=== PATIENT | female | born 1950 | race Caucasian/White ===

== ENCOUNTER 2017-01-22 07:13 | Day surgery (SDC) | payer BC ==
[~2017-01-22 07:13] MED LIST: Buffered Lidocaine 1% SYRIN* 5 ML/SYR SYRINGE INTRADERM ONE
[2017-01-22] MEDS ORDERED: Midazolam* 1 MG/ML 2 ML VIAL (2 MG) ONE (09:24)
[2017-01-22] MEDS ORDERED: Propofol* 10 MG/ML 20 ML BTL IV PUSH ONE (09:50)
[2017-01-22 09:59] VITALS: BP 138/96
[2017-01-22] MEDS ORDERED: acetaZOLAMIDE TAB* 250 MG ONE (11:25)
[2017-01-22] MEDS ORDERED: Cyclopentolate 1% OPTH.SOL* 2 ML BTL ONE (11:25)
[2017-01-22] MEDS ORDERED: Lidocaine 1% MPF* 2 ML VIAL ONE (11:25)
[2017-01-22] MEDS ORDERED: Lidocaine 2% EPI 1:200000 MPF* 20 ML VIAL ONE (11:25)
[2017-01-22] MEDS ORDERED: Flurbiprofen 0.03% OPTH.SOL* 2.5 ML BTL ONE (11:25)
[2017-01-22] MEDS ORDERED: Neomycin/Polymy/Dex OPTH.SUSP* MAXITROL 0.1% 5 ML ONE (11:25)
[2017-01-22] MEDS ORDERED: Povidone Iodine 5% OPTH* 30 ML BTL ONE (11:26)
[2017-01-22] MEDS ORDERED: Proparacaine 0.5% OPHTH.SOL* 15 ML BTL ONE (11:26)
[2017-01-22] MEDS ORDERED: Phenylephrine 2.5% OPTH.SOL* 2 ML BTL ONE (11:26)
--- NOTE | 2017-01-23 01:48 | OP ---
OPERATIVE NOTE: DATE OF OPERATION: 01/22/17 - [facility] DATE OF : 50 SURGEON: Nnamdi Motley M.D. PREOPERATIVE DIAGNOSIS: Cataract, right eye. POSTOPERATIVE DIAGNOSIS: Cataract, right eye. OPERATIVE PROCEDURE: Phacoemulsification, right eye with IOL. PROCEDURE: The patient was brought to the operating room after being given 1/2 % Alcaine with epinephrine drops in the preoperative area. The eye was prepped and draped in the usual sterile fashion. Sterile drape and eyelid speculum were placed. Again, topical 1/2% Alcaine with epinephrine was given. A paracentesis incision was made at the 9 o'clock position with the No.75 blade. Clear cornea incision 2.2 x 2.2-mm was created at the 12 o'clock position starting at the anterior limbus using the 2.2-mm keratome. The anterior chamber was irrigated with 0.4 mL of 1% non-preservative intracameral lidocaine and filled with DisCoVisc. A capsulorrhexis was completed using the cystotome and the Utrata forceps. Hydrodissection was performed with balanced salt solution. The lens nucleus was removed with the Phacoemulsification handpiece without incident. Cortex was removed with the irrigation-aspiration handpiece. The capsular bag was re-inflated using DisCoVisc and an [id number] implant was inserted with the shooter. The irrigation-aspiration handpiece was used to remove all residual DisCoVisc. The eye was refilled with balanced salt solution and the wound checked and found to be watertight. Topical Maxitrol drops were given. [id number]/[facility] #: [id number] MTDD
== END 2017-01-22 10:05 | disposition home or self-care (01) ==
LOC: OREAST 07:13
PROVIDERS: ATTEND Specialist
DX: H25.811 Combined forms of age-related cataract, right eye (principal); H43.813 Vitreous degeneration, bilateral; F17.210 Nicotine dependence, cigarettes, uncomplicated; J44.9 Chronic obstructive pulmonary disease, unspecified; K21.9 Gastro-esophageal reflux disease without esophagitis; N39.0 Urinary tract infection, site not specified; Z85.3 Personal history of malignant neoplasm of breast; I10 Essential (primary) hypertension
CPT/HCPCS: A9270-GY; J2250; J2704; V2632

== ENCOUNTER 2017-01-29 07:05 | Day surgery (SDC) | payer BC ==
[~2017-01-29 07:05] MED LIST changes: +Acetaminophen TAB* 325 MG PO PRN
[2017-01-29] MEDS ORDERED: Midazolam* 1 MG/ML 5 ML VIAL (5 MG) ONE (09:02)
[2017-01-29 09:37] VITALS: BP 151/71
[2017-01-29] MEDS ORDERED: acetaZOLAMIDE TAB* 250 MG ONE (12:08)
[2017-01-29] MEDS ORDERED: Povidone Iodine 5% OPTH* 30 ML BTL ONE (12:08)
[2017-01-29] MEDS ORDERED: Proparacaine 0.5% OPHTH.SOL* 15 ML BTL ONE (12:08)
[2017-01-29] MEDS ORDERED: Lidocaine 2% EPI 1:200000 MPF* 20 ML VIAL ONE (12:08)
[2017-01-29] MEDS ORDERED: Lidocaine 1% MPF* 2 ML VIAL ONE (12:08)
[2017-01-29] MEDS ORDERED: Neomycin/Polymy/Dex OPTH.SUSP* MAXITROL 0.1% 5 ML ONE (12:08)
[2017-01-29] MEDS ORDERED: Cyclopentolate 1% OPTH.SOL* 2 ML BTL ONE (12:08)
[2017-01-29] MEDS ORDERED: Flurbiprofen 0.03% OPTH.SOL* 2.5 ML BTL ONE (12:08)
--- NOTE | 2017-01-29 13:02 | OP ---
OPERATIVE NOTE: DATE OF OPERATION: 01/29/17 DATE OF : 50. SURGEON: Nnamdi Motley M.D. PREOPERATIVE DIAGNOSIS: Cataract, left eye. POSTOPERATIVE DIAGNOSIS: Cataract, left eye. OPERATIVE PROCEDURE: Phacoemulsification, left eye with IOL. PROCEDURE: The patient was brought to the operating room after being given 1/2 % Alcaine with epinephrine drops in the preoperative area. The eye was prepped and draped in the usual sterile fashion. Sterile drape and eyelid speculum were placed. Again, topical 1/2% Alcaine with epinephrine was given. A paracentesis incision was made at the 3 o'clock position with the No.75 blade. Clear cornea incision 2.2 x 2.2-mm was created at the 6 o'clock position starting at the anterior limbus using the 2.2-mm keratome. The anterior chamber was irrigated with 0.4 mL of 1% non-preservative intracameral lidocaine and filled with DisCoVisc. A capsulorrhexis was completed using the cystotome and the Utrata forceps. Hydrodissection was performed with balanced salt solution. The lens nucleus was removed with the Phacoemulsification handpiece without incident. Cortex was removed with the irrigation-aspiration handpiece. The capsular bag was re-inflated using DisCoVisc and an SN60WF 22.5 implant was inserted with the shooter. The irrigation-aspiration handpiece was used to remove all residual DisCoVisc. The eye was refilled with balanced salt solution and the wound checked and found to be watertight. Topical Maxitrol drops were given. [id number]/[facility] #: [id number] MTDD
== END 2017-01-29 09:45 | disposition home or self-care (01) ==
LOC: OREAST 07:05
PROVIDERS: ATTEND Specialist
DX: H25.812 Combined forms of age-related cataract, left eye (principal); J44.9 Chronic obstructive pulmonary disease, unspecified; K21.9 Gastro-esophageal reflux disease without esophagitis; F17.200 Nicotine dependence, unspecified, uncomplicated
CPT/HCPCS: A9270-GY; J2250; V2632

== ENCOUNTER 2017-03-27 06:28 | Day surgery (SDC) | payer BC ==
[~2017-03-27 06:28] MED LIST changes: -Acetaminophen TAB* 325 MG PO PRN; +Buffered Lidocaine 0.9% SYRIN* 5 ML/SYR SYRINGE INTRADERM ONE; -Buffered Lidocaine 1% SYRIN* 5 ML/SYR SYRINGE INTRADERM ONE
[2017-03-27] MEDS ORDERED: ceFAZolin 2 GM PREMIX(*) 2 GM/50 ML BAG IVPB ONE (07:04)
[2017-03-27] MEDS ORDERED: Bacitracin OINTMENT* 1 TUBE ONE (07:26)
[2017-03-27] MEDS ORDERED: Dexamethasone IV* 4 MG/ML 1 ML (4 MG) ONE (07:26)
[2017-03-27] MEDS ORDERED: Lidocaine 1% INJ* 10 MG/ML 30 ML SDV ONE (07:26)
[2017-03-27] MEDS ORDERED: Bupivacaine 0.5%* 50 ML VIAL ONE (07:27)
[2017-03-27] MEDS ORDERED: Bupivacaine 0.5% SDV PF* 30 ML VIAL ONE (07:28)
[2017-03-27] MEDS ORDERED: Midazolam* 1 MG/ML 2 ML VIAL (2 MG) ONE (07:34)
[2017-03-27] MEDS ORDERED: fentaNYL* 50 MCG/ML 2 ML VIAL (100 MCG VIAL) ONE (07:34)
[2017-03-27] MEDS ORDERED: Propofol* 10 MG/ML 20 ML BTL IV PUSH ONE ×2 (07:34→08:59)
[2017-03-27] MEDS ORDERED: fentaNYL* 50 MCG/ML 2 ML VIAL (100 MCG VIAL) IV PRN (08:37)
[2017-03-27] MEDS ORDERED: Ondansetron INJ* 2 MG/ML VIAL IV PRN (08:37)
[2017-03-27 09:31] VITALS: BP 142/73
--- NOTE | 2017-03-27 17:04 | OP ---
DATE OF OPERATION: 03/27/17 - [facility] DATE OF : 50 SURGEON: Wilian Carbajal DPM EXHIBITION CARVER: None. ANESTHESIOLOGIST: Lane Wooten MD ANESTHESIA: MAC with local. PRE-OP DIAGNOSES: 1. Painful bunion with hallux limitus, right foot. 2. Painful second right hammertoe. POST-OP DIAGNOSES: 1. Painful bunion with hallux limitus, right foot. 2. Painful second right hammertoe. OPERATIVE PROCEDURE: 1. Bunionectomy with first metatarsal osteotomy and phalangeal osteotomy, right foot. 2. Correction of second right toe hammertoe with PIPJ arthroplasty, MTPJ arthrotomy with extensor tendon lengthening and K-wire fixation, second digit right foot. INDICATIONS: The patient with chronic and progressive right forefoot pain and deformity with bunion deformity, contracted second right hammertoe creating painful lesion in between the adjacent toes, pain, and stiffness from the right great toe joint and she has pain when walking, wearing shoes, and opts for surgery at this time to attempt to decrease pain and improve her function and improve her ability to wear shoes and walk. PATHOLOGY: Degenerative bone. HEMOSTASIS: Pneumatic ankle tourniquet. ESTIMATED BLOOD LOSS: Less than 10 cc. MATERIALS: Two of the 3.0-mm cannulated [place], cannulated screws and one smooth 0.045-inch K-wire. DESCRIPTION OF PROCEDURE: The patient was brought to the operating room, placed on the operating room table in supine position. Anesthesia department administered IV sedation and peripheral nerve block was performed about the right foot with a 1:1 mixture of 1% lidocaine plain and 0.5% Marcaine plain. Attention was directed to dorsomedial aspect of the right foot. An Esmarch bandage was utilized to exsanguinate the right foot and pneumatic ankle tourniquet was inflated to 250 mmHg above well-padded right ankle. Attention was directed to the dorsomedial aspect of the right great toe joint where a curvilinear incision was made. The incision was deepened through subcutaneous tissue, with care been taken to retract neurovascular structures and cauterize superficial bleeders as needed. Next, an inverted L capsular incision was made of exposure of the joint. There was noted to be hypertrophic bone dorsomedially as well as dorsolaterally. Next, a traditional lateral release was performed in the first metatarsal space releasing the conjoint tendon of the adductor hallucis and posterolateral capsule and lateral fibular sesamoid ligament. Extensor hallucis brevis tendon was also identified and transected. A McGlamry elevator was needed to free plantar lateral adhesions of the sesamoid apparatus. This allowed for relaxation of all lateral contractures. Next, using sagittal saw, the hypertrophic bone was resected from first metatarsal head. Next, a chevron-type first metatarsal head osteotomy was performed with the apex just dorsal and proximal to the geometric center of the first metatarsal head. First, the plantar ligament wing was cut angled slightly plantar proximally to offer some plantar flexion of the capital fragment from medial to lateral. Next, the dorsal wing was cut. This being done, the capital fragment was transposed lateral to the corrected position and temporary fixation was achieved with smooth wire from the screw set. Position was checked with intraoperative C-arm. Next, using standard technique, a 3.0-mm cannulated screw was placed across the osteotomy site with care being taken to ensure that tip of the screw do not enter the joint. The screw was set at 2 fingers' tight. Temporary fixation was removed and the osteotomy was found to be solid with no detectable motion or gapping. Again, the positioning and fixation was assessed with intraoperative C-arm. Redundant medial shaft of bone was resected and power bur was used to smooth rough edges. Surgical site was flushed with copious amounts of normal sterile saline. There was still some lateral deviation within the great toe and so the dissection was carried further dorsomedially to allow for reflection of the periosteum as well and exposure of the proximal phalanx. Next , the angular phalangeal osteotomy was performed, distal medial to more proximal lateral with the proximal lateral hinge maintained. Small wedge of bone was resected and the osteotomy was reduced. Temporary fixation was achieved with the wire from screw set. Position was assessed with the C-arm and using standard technique, a 3.0-mm cannulated [place] screw was placed across the osteotomy site. Temporary fixation was removed and the osteotomy was inspected, found to be solid, no detectable motion or gapping and the screw was 2 fingers' tight. Surgical site was flushed with copious amounts of normal sterile saline. Medial capsulorrhaphy was performed resecting redundant medial capsule and holding the hallux in the rectus position. The periosteal and capsular tissues were reapproximated and secured with 2-0 Polysorb. Subcutaneous tissues were reapproximated with 4-0 Polysorb and skin was reapproximated with 5-0 nylon. Attention was directed to the dorsal aspect of the second digital where a curvilinear incision was made. The extensor peck was released and the transverse tenotomy/capsulotomy was performed to proximal phalangeal joint and the proximal phalangeal head was resected. Power bur was used to smooth rough edges. Next, Z extensor tendon lengthening procedure was performed and transverse capsulotomy was performed to metatarsophalangeal joint. There was still noted be contractures and McGlamry elevator was needed to gently free plantar adhesions. This allowed for relaxation of the contractures. The surgical site was flushed with copious amounts of normal sterile saline. A K- wire was needed to maintain position, so a smooth 0.045-inch K-wire was driven to the base of the proximal phalanx through tip of the digit retrograde through the proximal phalanx. Care had been taken to ensure to not penetrate the metatarsophalangeal joint. The wire had been cut and capped after the position was assessed with C-arm. The capsular tissues and extensor tendon were secured with 4-0 Polysorb. Subcutaneous tissues were secured with 4-0 Polysorb and skin was reapproximated and secured with 5-0 nylon. 12 mg of dexamethasone phosphate was infiltrated about the surgical site. The incisions were dressed with Xeroform gauze and a light compressive dressing was applied with 4x4 gauze , Maura, and light Coban wrap. Pneumatic ankle tourniquet was deflated about the right ankle and prompt hyperemic response noted in all 5 digits of patient' s right foot. Having appeared to have tolerated the procedure and the anesthesia well, the patient was transported via cart from the operating room to Recovery in satisfactory condition with cap refill less than 3 seconds to all digits of the right foot. [id number]/[facility] #: [id number] [facility]
== END 2017-03-27 09:54 | disposition home or self-care (01) ==
LOC: OREAST 06:28
PROVIDERS: ATTEND Podiatrist Foot Surgery
DX: M21.611 Bunion of right foot (principal); M20.5X1 Other deformities of toe(s) (acquired), right foot; M20.41 Other hammer toe(s) (acquired), right foot; I10 Essential (primary) hypertension; F17.210 Nicotine dependence, cigarettes, uncomplicated; Z85.3 Personal history of malignant neoplasm of breast; E78.5 Hyperlipidemia, unspecified
CPT/HCPCS: 76000; A9270-GY; C1713; C1776; J0690; J1100; J2001; J2250; J2704; J3010

== ENCOUNTER 2018-04-05 06:52 | Emergency (ER) | payer MEDICARE ==
--- NOTE | 2018-04-05 07:46 | ED ---
Upper Extremity Pain - HPI Summary HPI Summary: This is geetha Lowe documenting for attending Azam Turner MD. This patient is a 68 year old F presenting to [facility] accompanied by her with a chief complaint of left shoulder pain that began this morning when she awoke. She states she has chronic shoulder pain especially with movement and believes the pain may be due to sleeping on it last night. The patient rates the pain 10/10 in severity and states it is located in her trapezius as well as her shoulder. Patient denies numbness, weakness, and injury. NDKA - History of Current Complaint Chief Complaint: EDShoulderClavicleInj Stated Complaint: LT SHOULDER PAIN Time Seen by Provider: 04/05/18 07:38 Hx Obtained From: Patient Mechanism Of Injury: Other - none Onset/Duration: Started Hours Ago, Still Present Timing: Constant Severity Initially: Severe Severity Currently: Severe Pain Location: Shoulder - left, Other: - left neck Aggravating Factor(s): Movement Associated Signs & Symptoms: Positive: Negative - numbness, weakness, neck pain , and injury. - Allergies/Home Medications Allergies/Adverse Reactions: Allergies Allergy/AdvReac Type Severity Reaction Status Date / Time Seasonal Allergy Congestion Uncoded 04/22/17 10:26 PMH/Surg Hx/FS Hx/Imm Hx Endocrine/Hematology History: Denies: Hx Diabetes, Hx Thyroid Disease Cardiovascular History: Reports: Hx Hypertension Denies: Hx Pacemaker/ICD, Hx Syncope - dizziness, no fainting, Other Cardiovascular Problems/Disorders Respiratory History: Reports: Hx Chronic Obstructive Pulmonary Disease (COPD), Hx Seasonal Allergies Denies: Hx Asthma, Hx Pleural Effusion, Hx Pneumonia, Hx Pulmonary Edema, Hx Sleep Apnea, Other Respiratory Problems/Disorders GI History: Denies: Other GI Disorders History: Reports: Other Problems/Disorders - NO RECENT UTI'S Musculoskeletal History: Reports: Hx Arthritis - HIPS,KNEES, HANDS Denies: Hx Osteoporosis, Other Musculoskeletal History Sensory History: Reports: Hx Cataracts - ONE EYE, Hx Contacts or Glasses - GLASSES, Hx Vision Problem Denies: Hx Glaucoma, Hx Hearing Aid, Hx Hearing Problem Opthamlomology History: Reports: Hx Cataracts - ONE EYE, Hx Contacts or Glasses - GLASSES, Hx Vision Problem Denies: Hx Glaucoma Neurological History: Reports: Hx Headaches, Hx Migraine - HAVE MEDS, NO NEED SINCE MCC Denies: Hx Seizures, Other Neuro Impairments/Disorders Psychiatric History: Reports: Hx Anxiety - ON MEDS, Hx Depression - ON MEDS, Hx Panic Disorder - Cancer History Cancer Type, Location and Year: BREAST Hx Chemotherapy: No Hx Radiation Therapy: Yes - BOTH TIMES, RADIATION ONLY - Surgical History Surgery Procedure, Year, and Place: RIGHT BREAST LUMPECTOMY, 2005, [facility], HYSTERECTOMY, 2012, [facility] [place],LEFT KNEE ARTHROSCOPY 2011, [facility] [place], LEFT BREAST LUMPECTOMY 2013 Hx Anesthesia Reactions: No Infectious Disease History: No Infectious Disease History: Denies: Traveled Outside the [place] in Last 30 Days - Family History Known Family History: Positive: Hypertension Negative: Cardiac Disease, Diabetes - Social History Alcohol Use: Occasionally Alcohol Amount: 2-3 PER MONTH Substance Use Type: Reports: None Hx Tobacco Use: Yes Smoking Status (MU): Light Every Day Tobacco Smoker Type: Cigarettes Amount Used/How Often: PACK A DAY Length of Time of Smoking/Using Tobacco: 40 YEARS ON AND OFF Have You Smoked in the Last Year: Yes Review of Systems Constitutional: Negative - injury Positive: Other - left shoulder pain Negative: Weakness, Numbness All Other Systems Reviewed And Are Negative: Yes Physical Exam - Summary Physical Exam Summary: Appearance: Well appearing, no pain distress Skin: warm, dry, reflects adequate perfusion Head/face: normal Eyes: EOMI, BAILEE ENT: normal Neck: supple, non-tender Respiratory: CTA, breath sounds present Cardiovascular: RRR, pulses symmetrical Abdomen: non-tender, soft Bowel Sounds: present Musculoskeletal: strength/ROM intact, no crepitus, no limited ROM in left shoulder. Her left superior trapezius muscle is TTP and in spasm. Neuro: normal, sensory motor intact, A&Ox3 Triage Information Reviewed: Yes Vital Signs On Initial Exam: Initial Vitals Temp Pulse Resp BP Pulse Ox 97.8 F 79 18 160/86 97 04/05/18 06:55 04/05/18 06:55 04/05/18 06:55 04/05/18 06:55 04/05/18 06:55 Vital Signs Reviewed: Yes Procedures - Procedure Summary Procedure Summary: Trigger point injection: Reason: Left trapezius strain, tenderness Description: The patient was verbally consented. Her left superior trapezius area was cleaned and prepped with alcohol. She was injected with a total of 10 cc of 0.5% bupivacaine which was massage through the musculature. Her pain was almost immediately relieved. She had no complications and tolerated this well. Diagnostics - Vital Signs Vital Signs Temp Pulse Resp BP Pulse Ox 04/05/18 06:55 97.8 F 79 18 160/86 97 - Laboratory Lab Statement: Any lab studies that have been ordered have been reviewed, and results considered in the medical decision making process. Re-Evaluation - Re-Evaluation First Eval Re-Evaluation Time: 07:48 Change: Improved Comment: Patients pain resolved with injection. Course/Dx - Course Course Of Treatment: Pain is isolated to the superior trapezius muscle. A trigger point injection was performed which relieved all symptoms. She'll be given as needed cyclobenzaprine for ongoing symptoms. - Diagnoses Provider Diagnoses: Trapezius muscle spasm Discharge - Sign-Out/Discharge Documenting (check all that apply): Patient Departure - Discharge Plan Condition: Improved Disposition: HOME Prescriptions: Cyclobenzaprine (NF) [Cyclobenzaprine 5 MG (NF)] 5 mg PO TID PRN #10 tab PRN Reason: muscle pain Patient Education Materials: Muscle Strain (ED) Referrals: Natasha Laboy MD [Primary Care Provider] - Additional Instructions: Ice, massage to the area. Ibuprofen as needed. Muscle relaxant as needed. Return if worse, new symptoms or other concerns. - Billing Disposition and Condition Condition: IMPROVED Disposition: Home
[2018-04-05 08:12] VITALS: BP 148/80
== END 2018-04-05 08:10 | disposition home or self-care (01) ==
LOC: ED 06:52
DX: M62.838 Other muscle spasm (principal); F17.210 Nicotine dependence, cigarettes, uncomplicated
CPT/HCPCS: 99282

== ENCOUNTER 2021-12-15 05:29 | Inpatient (IN) ==
[2021-12-15 06:09] LABS: ABS Eosinophils 0.1 10^3/ul (0-0.6); ABS Lymphocytes 0.9 10^3/ul (1.0-4.8); ABS Monocytes 0.8 10^3/ul (0-0.8); Eosinophil % 0.5 %; Hematocrit 35 % (35-47); Hemoglobin 12.5 g/dL (12.0-16.0); Lymphocyte % 8.1 %; Mean Corpuscular HGB Conc 36 g/dL (31-36); Mean Corpuscular Hemoglobin 31 pg (27-31); Mean Corpuscular Volume 86 fL (80-97); Platelet Count 263 10^3/uL (150-450); Red Blood Count 4.01 10^6 /uL (3.70-4.87); Red Cell Distribution Width 14 % (10-15); White Blood Count 10.7 10^3/uL (3.5-10.8)
[2021-12-15 06:45] LABS: Albumin 4.4 g/dL (3.2-5.2); Albumin/Globulin Ratio 1.9 (1-3); Calcium 9.5 mg/dL (8.6-10.3); Globulin 2.3 g/dL (2-4); Magnesium 1.7 mg/dL (1.9-2.7); Potassium 3.4 mmol/L (3.5-5.0); Total Bilirubin 0.4 mg/dL (0.2-1.0); Total Protein 6.7 g/dL (6.4-8.9); eGFR CKD-EPI 95.5 (>60)
[2021-12-15 06:59] LABS: TSH Ultra Thyroid Stim Horm 1.58 mcIU/mL (0.34-5.60)
[2021-12-15] MEDS ORDERED: Morphine 2 MG/ML SYRINGE IV PRN (07:15)
[2021-12-15] MEDS: Morphine 4 MG/ML VIAL (1 ml) IV ONE (07:33)
[2021-12-15 08:24] LABS: High Sensitivity Troponin 1 Hr 4 pg/mL (<15)
[2021-12-15] MEDS ORDERED: Senna TAB 8.6 mg TAB PO PRN (08:31)
[2021-12-15] MEDS ORDERED: Potassium Chlor 20 meq TAB.ER PO ONE (08:53)
[2021-12-15 09:22] LABS: Osmolality Serum 263 mOsm/kg (275-295)
[2021-12-15] MEDS ORDERED: Magnesium Sulfate 2 gm BAG 2 GM/50 ML BAG IVPB ONE (09:46)
[2021-12-15] MEDS: Aspirin EC 81 mg TAB.EC (enteric coated) PO SCH (10:36)
[2021-12-15] MEDS: Vitamin THERAPEUTIC TAB PO SCH (10:37)
[2021-12-15] MEDS: Cholecalciferol (VIT D3) 1,000 unit TAB PO SCH (12:23)
[2021-12-15] MEDS: Nicotine PATCH 21 MG/24 HR PATCH TRANSDERM SCH (12:25)
[2021-12-15] MEDS: NS 0.9% 1000 ml BAG 1,000 ML IV SCH (12:26)
[2021-12-15] MEDS: Heparin 5000 UNITS/ML 1 mL VIAL SUBCUT SCH (22:40)
[2021-12-16 00:42] LABS: Urine Osmo 182 mOsm/kg (150-1150)
[2021-12-16] MEDS: NS 0.9% 1000 ml BAG 1,000 ML IV SCH ×2 (03:23→19:26)
[2021-12-16 05:16] LABS: ABS Eosinophils 0.1 10^3/ul (0-0.6); ABS Lymphocytes 0.9 10^3/ul (1.0-4.8); ABS Monocytes 0.8 10^3/ul (0-0.8); Eosinophil % 0.7 %; Hematocrit 35 % (35-47); Hemoglobin 12.4 g/dL (12.0-16.0); Mean Corpuscular HGB Conc 36 g/dL (31-36); Mean Corpuscular Hemoglobin 31 pg (27-31); Mean Corpuscular Volume 88 fL (80-97); Mean Platelet Volume 7.4 fL (7.4-10.4); Platelet Count 250 10^3/uL (150-450); Red Blood Count 3.94 10^6 /uL (3.70-4.87); Red Cell Distribution Width 14 % (10-15); White Blood Count 9.8 10^3/uL (3.5-10.8)
[2021-12-16 05:34] LABS: Calcium 8.8 mg/dL (8.6-10.3); Potassium 4.4 mmol/L (3.5-5.0); eGFR CKD-EPI 98.8 (>60)
[2021-12-16] MEDS: Heparin 5000 UNITS/ML 1 mL VIAL SUBCUT SCH ×3 (06:18→22:33)
[2021-12-16] MEDS: Nicotine PATCH 21 MG/24 HR PATCH TRANSDERM SCH (08:18)
[2021-12-16] MEDS: Aspirin EC 81 mg TAB.EC (enteric coated) PO SCH (08:18)
[2021-12-16] MEDS: Cholecalciferol (VIT D3) 1,000 unit TAB PO SCH (08:18)
[2021-12-16] MEDS: Vitamin THERAPEUTIC TAB PO SCH (08:20)
[2021-12-17 08:27] LABS: INR 1.15 (0.86-1.15)
[2021-12-17 09:25] LABS: Calcium 8.6 mg/dL (8.6-10.3); Potassium 4.2 mmol/L (3.5-5.0); eGFR CKD-EPI 101.2 (>60)
[2021-12-17] MEDS: Vitamin THERAPEUTIC TAB PO SCH (10:37)
[2021-12-17] MEDS: Cholecalciferol (VIT D3) 1,000 unit TAB PO SCH (10:38)
[2021-12-17] MEDS: Nicotine PATCH 21 MG/24 HR PATCH TRANSDERM SCH (10:38)
[2021-12-17] MEDS: Aspirin EC 81 mg TAB.EC (enteric coated) PO SCH (10:41)
[2021-12-17] MEDS ORDERED: Regadenoson 0.4 MG/5 ML SYRINGE ONE (12:46)
[2021-12-17] MEDS ORDERED: Aminophylline 25 MG/ML VIAL ONE (12:46)
[2021-12-17] MEDS ORDERED: Bupivacaine 0.25% SDV PF 10 ML VIAL INJ ONE (12:53)
[2021-12-17] MEDS ORDERED: Vancomycin 1,000 MG VIAL ONE (15:47)
[2021-12-17] MEDS ORDERED: ceFAZolin 2 GM in NS PREMIX 2 GM/100 ML BAG IVPB ONE (15:48)
[2021-12-17] MEDS ORDERED: Morphine 4 MG/ML VIAL (1 ml) ONE (15:54)
[2021-12-17] MEDS: Morphine 4 MG/ML VIAL (1 ml) IV ONE (15:55)
[2021-12-17] MEDS ORDERED: Propofol 10 MG/ML 20 ML BTL ONE (16:03)
[2021-12-17] MEDS ORDERED: Dexamethasone IV 4 MG/ML VIAL 1 ml VIAL ONE (16:03)
[2021-12-17] MEDS ORDERED: Rocuronium 50 mg VIAL 10 mg/ml 5 ml VIAL (50 mg) ONE ×2 (16:03→17:35)
[2021-12-17] MEDS ORDERED: Ondansetron 4 mg VIAL 2 MG/ML 2 ml VIAL ONE (16:03)
[2021-12-17] MEDS ORDERED: fentaNYL 100 mcg/2 ml 50 MCG/ML VIAL ONE ×2 (16:03→18:36)
[2021-12-17] MEDS ORDERED: Lidocaine 2% PF 5 ML VIAL ONE (16:03)
[2021-12-17] MEDS ORDERED: Midazolam 2 mg/2 ml VIAL 1 mg/ml 2 ml VIAL (2 mg) ONE (16:03)
[2021-12-17] MEDS ORDERED: Phenylephrine 40 mcg/mL 10mL (400mcg) SYRINGE ONE (16:40)
[2021-12-17] MEDS ORDERED: Morphine 10 MG/ML VIAL (1 ml) ONE (17:07)
[2021-12-17] MEDS ORDERED: Phenylephrine IV 10 MG/ML 1 ml VIAL ONE (17:19)
[2021-12-17] MEDS ORDERED: Acetaminophen IV 1 GM/100ML 100 ML IV ONE (18:23)
[2021-12-17] MEDS ORDERED: DiMENhydriNATE IV 50 mg/ml 1 ml VIAL IV PUSH PRN (19:05)
[2021-12-17] MEDS ORDERED: fentaNYL 100 mcg/2 ml 50 MCG/ML VIAL IV PRN (19:05)
[2021-12-17] MEDS ORDERED: Naloxone 0.4 mg VIAL 0.4 mg/ml 1 ml VIAL IV PRN (19:05)
[2021-12-18] MEDS: ceFAZolin VIAL 1 GM in NS 0.9% 50 ML 50 ML IVPB SCH ×3 (01:09→16:43)
[2021-12-18] MEDS: NS 0.9% 1000 ml BAG 1,000 ML IV SCH ×2 (01:18→19:12)
[2021-12-18] MEDS: Nicotine PATCH 21 MG/24 HR PATCH TRANSDERM SCH (08:05)
[2021-12-18] MEDS: Magnesium Hydroxide LIQ 30 ML UDC PO PRN ×2 (08:05→22:05)
[2021-12-18] MEDS: Cholecalciferol (VIT D3) 1,000 unit TAB PO SCH (08:07)
[2021-12-18] MEDS: Vitamin THERAPEUTIC TAB PO SCH (08:07)
[2021-12-18] MEDS: Polyethylene Glycol 3350 17 GM PACKET PO PRN (08:08)
[2021-12-18 15:43] LABS: Hematocrit 27 % (35-47); Hemoglobin 9.2 g/dL (12.0-16.0)
[2021-12-19 07:31] LABS: Potassium 3.8 mmol/L (3.5-5.0); eGFR CKD-EPI 106.4 (>60)
[2021-12-19] MEDS: NS 0.9% 1000 ml BAG 1,000 ML IV SCH (08:35)
[2021-12-19] MEDS: Cholecalciferol (VIT D3) 1,000 unit TAB PO SCH (08:43)
[2021-12-19] MEDS: Vitamin THERAPEUTIC TAB PO SCH (08:44)
[2021-12-19] MEDS: Nicotine PATCH 21 MG/24 HR PATCH TRANSDERM SCH (08:45)
[2021-12-19 12:29] LABS: Urine Appearance Clear; Urine Bilirubin Negative (Negative); Urine Blood 2+ (Negative); Urine Color Yellow; Urine Glucose Negative (Negative); Urine Ketones 1+ (Negative); Urine Nitrite Negative (Negative); Urine Protein Negative (Negative); Urine Specific Gravity 1.009 (1.002-1.030); Urine Urobilinogen Negative (Negative)
[2021-12-19 13:00] LABS: Urine Bacteria 1+ (Absent); Urine Red Blood Cell Trace(0-2/hpf) (Absent); Urine White Blood Cell Trace(0-5/hpf) (Absent)
[2021-12-19 14:32] LABS: Hematocrit 25 % (35-47)
[2021-12-19] MEDS ORDERED: Iohexol 350 (CONTRAST) 500 ML MDV IV ONE (16:23)
[2021-12-19 20:10] LABS: High Sensitivity Troponin 1 Hr 10 pg/mL (<15)
[2021-12-20 06:25] LABS: ABS Eosinophils 0.1 10^3/ul (0-0.6); ABS Lymphocytes 0.7 10^3/ul (1.0-4.8); ABS Neutrophils 5.4 10^3/ul (1.5-7.7); Eosinophil % 1.5 %; Hematocrit 26 % (35-47); Hemoglobin 9.1 g/dL (12.0-16.0); Lymphocyte % 9.3 %; Mean Corpuscular HGB Conc 35 g/dL (31-36); Mean Corpuscular Hemoglobin 31 pg (27-31); Mean Corpuscular Volume 89 fL (80-97); Mean Platelet Volume 6.8 fL (7.4-10.4); Platelet Count 234 10^3/uL (150-450); Red Blood Count 2.92 10^6 /uL (3.70-4.87); Red Cell Distribution Width 14 % (10-15); White Blood Count 7.2 10^3/uL (3.5-10.8)
[2021-12-20 06:42] LABS: Calcium 8.1 mg/dL (8.6-10.3); Potassium 3.7 mmol/L (3.5-5.0); eGFR CKD-EPI 103.3 (>60)
[2021-12-20] MEDS: Vitamin THERAPEUTIC TAB PO SCH (08:20)
[2021-12-20] MEDS: Nicotine PATCH 21 MG/24 HR PATCH TRANSDERM SCH (08:22)
[2021-12-20] MEDS: Cholecalciferol (VIT D3) 1,000 unit TAB PO SCH (08:22)
[2021-12-21] MEDS ORDERED: cefTRIAXone 1 gm/50 mL D5W 1 GM/50 ML BAG IV ONE (02:00)
[2021-12-21 06:45] LABS: Hematocrit 26 % (35-47); Hemoglobin 9.3 g/dL (12.0-16.0); Mean Corpuscular HGB Conc 36 g/dL (31-36); Mean Corpuscular Hemoglobin 31 pg (27-31); Mean Corpuscular Volume 88 fL (80-97); Mean Platelet Volume 6.8 fL (7.4-10.4); Platelet Count 275 10^3/uL (150-450); Red Cell Distribution Width 14 % (10-15); White Blood Count 7.4 10^3/uL (3.5-10.8)
[2021-12-21 07:14] LABS: Calcium 8.2 mg/dL (8.6-10.3); Potassium 3.6 mmol/L (3.5-5.0); eGFR CKD-EPI 103.9 (>60)
[2021-12-21] MEDS: Polyethylene Glycol 3350 17 GM PACKET PO PRN (09:15)
[2021-12-21] MEDS: Vitamin THERAPEUTIC TAB PO SCH (09:16)
[2021-12-21] MEDS: Cholecalciferol (VIT D3) 1,000 unit TAB PO SCH (09:17)
[2021-12-21] MEDS: Nicotine PATCH 21 MG/24 HR PATCH TRANSDERM SCH (09:21)
[2021-12-21] MEDS ORDERED: cefTRIAXone 1 gm/50 mL D5W 1 GM/50 ML BAG IV SCH (21:00)
[2021-12-21] MEDS ORDERED: cefTRIAXone VIAL 1,000 MG in NS 0.9% 50 ML 50 ML IVPB SCH (21:00)
[2021-12-22] MEDS: Polyethylene Glycol 3350 17 GM PACKET PO PRN (08:02)
[2021-12-22] MEDS: Magnesium Hydroxide LIQ 30 ML UDC PO PRN (08:03)
[2021-12-22] MEDS: Cholecalciferol (VIT D3) 1,000 unit TAB PO SCH (08:05)
[2021-12-22] MEDS: Vitamin THERAPEUTIC TAB PO SCH (08:06)
[2021-12-22] MEDS: Nicotine PATCH 21 MG/24 HR PATCH TRANSDERM SCH (08:08)
[2021-12-22 11:15] VITALS: BP 149/73
== END 2021-12-22 15:15 | disposition home or self-care (01) | DRG 521 ==
LOC: ED 05:29 → EDHOLD 07:15 → SUATTDRO 07:15 → MEDTELE 11:46 → SSU 12-17 00:56
PROVIDERS: ADMIT Hospitalist; ATTEND Hospitalist

== ENCOUNTER 2021-12-24 12:38 | Observation (INO) ==
[2021-12-24 13:13] LABS: ABS Basophils 0.1 10^3/ul (0-0.2); ABS Eosinophils 0.3 10^3/ul (0-0.6); ABS Lymphocytes 1.3 10^3/ul (1.0-4.8); ABS Monocytes 0.8 10^3/ul (0-0.8); Eosinophil % 3.1 %; Hematocrit 29 % (35-47); Hemoglobin 10.2 g/dL (12.0-16.0); Lymphocyte % 15.4 %; Mean Corpuscular HGB Conc 35 g/dL (31-36); Mean Corpuscular Hemoglobin 31 pg (27-31); Mean Corpuscular Volume 88 fL (80-97); Mean Platelet Volume 6.4 fL (7.4-10.4); Platelet Count 454 10^3/uL (150-450); Red Cell Distribution Width 14 % (10-15); White Blood Count 8.4 10^3/uL (3.5-10.8)
[2021-12-24 13:42] LABS: ALT 51 U/L (7-52); AST 42 U/L (13-39); Acetaminophen < 15 mcg/mL; Albumin 3.7 g/dL (3.2-5.2); Albumin/Globulin Ratio 1.4 (1-3); Alkaline Phosphatase 157 U/L (35-149); Anion Gap 9 mmol/L (2-11); Blood Urea Nitrogen 10 mg/dL (6-24); CO2 Carbon Dioxide 25 mmol/L (22-32); Calcium 9.3 mg/dL (8.6-10.3); Chloride 95 mmol/L (101-111); Globulin 2.6 g/dL (2-4); Glucose 94 mg/dL (70-100); Potassium 3.8 mmol/L (3.5-5.0); Salicylate < 2.50 mg/dL (<30); Sodium 129 mmol/L (135-145); Total Protein 6.3 g/dL (6.4-8.9); eGFR CKD-EPI 97.5 (>60)
[2021-12-24 15:36] LABS: Urine Appearance Cloudy; Urine Bilirubin Negative (Negative); Urine Blood Negative (Negative); Urine Color Yellow; Urine Glucose Negative (Negative); Urine Ketones 1+ (Negative); Urine Nitrite Negative (Negative); Urine Protein Negative (Negative); Urine Specific Gravity 1.015 (1.002-1.030); Urine Urobilinogen Negative (Negative)
[2021-12-24 17:45] LABS: Urine Benzodiazepine Screen None Detected (None Detect); Urine Cannabinoids Screen Presumptive Positive (None Detect); Urine Opiates Screen Presumptive Positive (None Detect)
[2021-12-25 03:23] LABS: Osmolality Serum 266 mOsm/kg (275-295)
[2021-12-25 03:36] LABS: GGTP 146 U/L (9-64.0)
[2021-12-25 04:54] LABS: Alcohol, S < 13 mg/dL (<13)
[2021-12-25 07:16] LABS: ABS Eosinophils 0.4 10^3/ul (0-0.6); ABS Lymphocytes 1.5 10^3/ul (1.0-4.8); ABS Monocytes 0.6 10^3/ul (0-0.8); ABS Neutrophils 5.6 10^3/ul (1.5-7.7); Eosinophil % 4.7 %; Hematocrit 29 % (35-47); Hemoglobin 10.5 g/dL (12.0-16.0); Lymphocyte % 18.2 %; Mean Corpuscular HGB Conc 36 g/dL (31-36); Mean Corpuscular Hemoglobin 32 pg (27-31); Mean Corpuscular Volume 88 fL (80-97); Mean Platelet Volume 6.6 fL (7.4-10.4); Platelet Count 476 10^3/uL (150-450); Red Blood Count 3.32 10^6 /uL (3.70-4.87); Red Cell Distribution Width 14 % (10-15); White Blood Count 8.1 10^3/uL (3.5-10.8)
[2021-12-25 07:37] LABS: Albumin 3.7 g/dL (3.2-5.2); Albumin/Globulin Ratio 1.4 (1-3); Calcium 9.4 mg/dL (8.6-10.3); Globulin 2.6 g/dL (2-4); Total Bilirubin 0.5 mg/dL (0.2-1.0); Total Protein 6.3 g/dL (6.4-8.9); eGFR CKD-EPI 98.8 (>60)
[2021-12-25 08:36] LABS: Urine Osmo 208 mOsm/kg (150-1150)
[2021-12-25] MEDS: Aspirin EC 81 mg TAB.EC (enteric coated) PO SCH (09:47)
[2021-12-25] MEDS ORDERED: Pravastatin 20 mg TAB (NF) PO SCH (21:00)
[2021-12-26 05:10] LABS: ABS Basophils 0.1 10^3/ul (0-0.2); ABS Eosinophils 0.3 10^3/ul (0-0.6); ABS Lymphocytes 1.1 10^3/ul (1.0-4.8); ABS Monocytes 0.7 10^3/ul (0-0.8); ABS Neutrophils 4.3 10^3/ul (1.5-7.7); Eosinophil % 5.1 %; Hematocrit 30 % (35-47); Hemoglobin 10.5 g/dL (12.0-16.0); Lymphocyte % 17.1 %; Mean Corpuscular HGB Conc 35 g/dL (31-36); Mean Corpuscular Hemoglobin 31 pg (27-31); Mean Corpuscular Volume 88 fL (80-97); Mean Platelet Volume 6.5 fL (7.4-10.4); Nucleated Red Blood Cells % 0.1; Platelet Count 498 10^3/uL (150-450); Red Blood Count 3.39 10^6 /uL (3.70-4.87); Red Cell Distribution Width 14 % (10-15); White Blood Count 6.5 10^3/uL (3.5-10.8)
[2021-12-26 05:34] LABS: Albumin 3.7 g/dL (3.2-5.2); Albumin/Globulin Ratio 1.4 (1-3); Calcium 9.5 mg/dL (8.6-10.3); Globulin 2.6 g/dL (2-4); Potassium 4.3 mmol/L (3.5-5.0); Total Bilirubin 0.4 mg/dL (0.2-1.0); Total Protein 6.3 g/dL (6.4-8.9); eGFR CKD-EPI 98.4 (>60)
[2021-12-26] MEDS: Aspirin EC 81 mg TAB.EC (enteric coated) PO SCH (10:32)
[2021-12-26 11:39] VITALS: BP 136/65
== END 2021-12-26 13:00 | disposition home or self-care (01) ==
LOC: EDHOLD 12:38 → ED 12:38 → SUATTDRO 12-25 00:45 → MED 12-25 03:03
PROVIDERS: ADMIT Internal Medicine; ATTEND Hospitalist